=== PATIENT | male | born 1960 | race Caucasian/White ===

== ENCOUNTER → 2018-10-30 07:33 | Outpatient (CLI) | payer OTHER, SELFPAY ==
[2018-10-30 10:16] LABS: ALB/GLOB Ratio 0.9 RATIO (0.9-2.4); AST(SGOT) 23 U/L (15-37); Alanine Aminotransfer ALT/SGPT 54 U/L (16-61); Albumin, Serum 3.7 g/dL (3.2-5.0); Alkaline Phosphatase 85 U/L (45-117); Anion Gap 9 (5-15); BUN 20 mg/dL (7-18); BUN/Creat Ratio 20.4 RATIO (10-20); Calcium,Total 9.4 mg/dL (8.5-10.1); Chloride 106 mmol/L (98-107); Cholesterol 229 mg/dL (200); Creatinine, Serum 0.98 mg/dL (0.70-1.30); EST Glomerular Filtration Rate 84 mL/min (>60); Est Glom Filt Rate - Afr Amer 101 mL/min (>60); Free T3 2.4 pg/mL (2.18-3.98); Globulin 4.1 g/dL (2.2-4.2); Glucose 92 mg/dL (74-106); High Density Lipoprotein 41 mg/dL; Protein, Total 7.8 g/dL (6.4-8.2); Sodium Level 140 mmol/L (136-145); T4 Free Direct 1.21 ng/dL (0.76-1.46); T4 Total, Thyroxin 11.1 ug/dL (4.5-12.1); Thyroid Stim Hormone (TSH) 3.52 uIU/mL (0.358-3.74); Triglycerides 257 mg/dL; Very Low Density Lipoprotein 51 mg/dL (5-40)
[2018-10-30 11:53] LABS: Vitamin B12 433 pg/mL (211-911); Vitamin D,25 Hydroxy 27.2 ng/mL (29.95-100.01)
== END ==
PROVIDERS: Family Provider Family Medicine; PCP Family Medicine; Referring Provider Family Medicine; Visit Provider Family Medicine
DX: R53.83 Other fatigue (principal); E66.9 Obesity, unspecified; E78.5 Hyperlipidemia, unspecified; E03.9 Hypothyroidism, unspecified
CPT/HCPCS: 36415; 80053; 80061; 82306; 82607; 84403; 84436; 84439; 84443; 84481

== ENCOUNTER → 2019-06-29 16:20 | Outpatient (CLI) | payer OTHER, SELFPAY ==
[2019-06-29 18:49] LABS: Thyroid Stim Hormone (TSH) 1.33 uIU/mL (0.358-3.74)
[2019-06-30 08:59] LABS: Vitamin D,25 Hydroxy 36.8 ng/mL (29.95-100.01)
== END ==
PROVIDERS: PCP Family Medicine; Visit Provider Family Medicine
DX: E03.9 Hypothyroidism, unspecified (principal); E55.9 Vitamin D deficiency, unspecified
CPT/HCPCS: 36415; 82306; 84439; 84443

== ENCOUNTER → 2020-01-11 07:34 | Outpatient (CLI) | payer OTHER, SELFPAY ==
[2020-01-11 08:41] LABS: ALB/GLOB Ratio 0.9 RATIO (0.9-2.4); AST(SGOT) 25 U/L (15-37); Alanine Aminotransfer ALT/SGPT 45 U/L (16-61); Albumin, Serum 3.6 g/dL (3.2-5.0); Alkaline Phosphatase 108 U/L (45-117); Anion Gap 5 (5-15); BUN 15 mg/dL (7-18); BUN/Creat Ratio 14.4 RATIO (10-20); Calcium,Total 9.5 mg/dL (8.5-10.1); Chloride 108 mmol/L (98-107); Cholesterol 191 mg/dL (200); Creatinine, Serum 1.04 mg/dL (0.70-1.30); EST Glomerular Filtration Rate 78 mL/min (>60); Est Glom Filt Rate - Afr Amer 94 mL/min (>60); Globulin 4.2 g/dL (2.2-4.2); Glucose 115 mg/dL (74-106); High Density Lipoprotein 33 mg/dL; PSA,Total - Annual Screen 0.72 ng/mL (0.00-4.00); Potassium 4.5 mmol/L (3.5-5.1); Protein, Total 7.8 g/dL (6.4-8.2); Sodium Level 139 mmol/L (136-145); Thyroid Stim Hormone (TSH) 0.72 uIU/mL (0.358-3.74); Triglycerides 273 mg/dL; Very Low Density Lipoprotein 55 mg/dL (5-40)
== END ==
PROVIDERS: PCP Family Medicine; Referring Provider Family Medicine; Visit Provider Family Medicine
DX: R53.83 Other fatigue (principal)
CPT/HCPCS: 36415; 80053; 80061; 84153; 84443; G0103

== ENCOUNTER → 2021-01-03 07:00 | Outpatient (CLI) | payer OTHER, SELFPAY ==
[2021-01-03 11:05] LABS: ALB/GLOB Ratio 0.9 RATIO (0.9-2.4); AST(SGOT) 27 U/L (15-37); Alanine Aminotransfer ALT/SGPT 62 U/L (16-61); Albumin, Serum 3.8 g/dL (3.2-5.0); Alkaline Phosphatase 72 U/L (45-117); Anion Gap 7 (5-15); BUN 17 mg/dL (7-18); BUN/Creat Ratio 18.2 RATIO (10-20); Calcium,Total 9.6 mg/dL (8.5-10.1); Chloride 105 mmol/L (98-107); Cholesterol 225 mg/dL (200); Creatinine, Serum 0.94 mg/dL (0.70-1.30); EST Glomerular Filtration Rate 88 mL/min (>60); Est Glom Filt Rate - Afr Amer 106 mL/min (>60); Globulin 4.1 g/dL (2.2-4.2); Glucose 111 mg/dL (74-106); High Density Lipoprotein 41 mg/dL; PSA,Total - Annual Screen 0.65 ng/mL (0.00-4.00); Protein, Total 7.9 g/dL (6.4-8.2); Sodium Level 138 mmol/L (136-145); Thyroid Stim Hormone (TSH) 3.06 uIU/mL (0.358-3.74); Triglycerides 200 mg/dL; Very Low Density Lipoprotein 40 mg/dL (5-40)
== END ==
PROVIDERS: PCP Family Medicine; Referring Provider Family Medicine; Visit Provider Family Medicine
DX: E78.5 Hyperlipidemia, unspecified (principal); E03.9 Hypothyroidism, unspecified; Z12.5 Encounter for screening for malignant neoplasm of prostate
CPT/HCPCS: 36415; 80053; 80061; 84153; 84443; G0103

== ENCOUNTER 2021-04-20 08:40 | Emergency (ER) | payer OTHER, SELFPAY ==
[2021-04-20 08:41] VITALS: BP 128/95; PULSE 70; RESP 14; TEMP 36.6; O2SAT 98; BMI 39.9
--- NOTE | 2021-04-20 08:56 | ED.VIS.LOWEX ---
HPI History of Present Illness HPI Narrative: Patient presents with left ankle injury that occurred 1 week ago. Patient states he stepped on the edge of a sidewalk and inverted his left ankle. Patient states he felt a pop. Patient states he has been able to ambulate on it for the past week. Patient states that by the end of the day the swelling is getting worse and he has difficulty keeping his shoe on. Patient states his pain is a throbbing. Patient states it is worse when he pivots. Patient states Motrin has been helping with the pain. Patient denies any paresthesias or weakness. Chief Complaint: Lower Extremity Injury Informant: patient Occured/Mechanism Comment: Inversion injury Onset/Context/Timing Onset: Weeks (1) Context: Sudden Onset Timing: Continuous Quality of Pain: Throbbing Worsened by: Pivoting Relieved by: Motrin Associated Symptoms Associated Symptoms: Negative for Parasthesia, Weakness and Loss of Funtion [facility] Medical History (Updated 04/20/21 @ 10:[address] Dave Gaston DO) Gout Hypothyroidism Home Medications allopurinol 300 mg PO DAILY 04/20/21 [History Last Taken Unknown] levothyroxine 200 mcg PO DAILY 04/20/21 [History Last Taken Unknown] Allergy/AdvReac Type Severity Reaction Status Date / Time No Known Allergies Allergy Verified 04/20/21 08:41 Surgical History (Updated 04/20/21 @ 09:06 by Bridgette Young) History of cholecystectomy Hx of cholecystectomy Social History Smoking Status: Light Smoker (<10/day) ROS ROS ED Constitutional Constitutional ED: Denies chills or fever(s) Eyes Eyes: Denies blurry vision or change in vision ENT ENT ED: Denies rhinorrhea or sore throat Cardiovascular Cardiovascular: Denies chest pain or palpitations Respiratory/Chest Respiratory/Chest: Denies cough or dyspnea Gastrointestinal Gastrointestinal: Denies nausea or vomiting Genitourinary Genitourinary ED: Denies dysuria or hematuria Musculoskeletal Musculoskeletal: Denies back pain or neck pain Integumentary Denies abscess or rash Neurologic Neurologic: Denies headache(s) or weakness Allergic/Immunologic Allergic/Immunologic ED: Denies mouth swelling or urticaria EXAM Physical Exam Const Vital Signs: 04/20/21 08:41 Temperature 98 F Temperature Source Temporal Pulse Rate 70 Respiratory Rate 14 Blood Pressure 128/95 H Blood Pressure Mean 106 Pulse Ox 98 Oxygen Delivery Method Room Air Positive well nourished, well developed and obese General Appearance ED: well developed Nutritional Appearance: obese HEENT Reports moist mucous membranes Neck full ROM Extremity Extremity Narrative: There is tenderness over the fifth metatarsal. There is no edema or ecchymosis. There is no bony crepitance or step-off. There is no obvious deformity noted. There is no tenderness over the medial or lateral malleoli. There is a strong pedal pulse noted. Sensation was intact to light touch in all digits. Capillary refill was less than 2 seconds in all digits. General Extremety ED: Yes edema General Extremity: edema Neuro oriented x3, CN's II-XII intact bilaterally, moves all extremities and no sensory deficits noted Sensorium / Orientation: alert Motor Exam: strength 5/5 throughout Psych mental status grossly normal MDM MDM MDM Narrative Medical decision making narrative: X-rays of the left foot were obtained. There are 3 views. On my interpretation, there is a fracture of the base of the fifth metatarsal. There are some mild soft tissue swelling. There is no displacement. Radiologist also interpreted the x-ray and agrees. Patient was given a boot orthosis. Patient was instructed to ice and elevate the left foot. Patient states his Motrin has been helping with his pain and he will continue with this. Patient was given a referral for orthopedics. Patient was instructed to follow-up in 5 to 7 days. Patient understood and was agreeable with the plan. All questions were answered. Radiography Diagnostic Testing: Clinical Impression(s) from Imaging Studies Foot X-Ray 04/20/21 09:20 IMPRESSION: There is a nondisplaced transverse fracture at the base of the fifth metatarsal with overlying soft tissue swelling. Degenerative changes of the first metatarsophalangeal joint. Electronically Signed: Avni Vincent MD at 9:55 EST , Service support , Discharge Plan Triage Chief Complaint: Lower Extremity Injury ED Provider: Dave Gasotn Dx/Rx/DC Orders Clinical Impression: Closed nondisplaced fracture of fifth left metatarsal bone Instructions: ED Fracture, Foot Prescriptions: No Action allopurinol 300 mg Tablet 300 mg PO DAILY RF: 0 levothyroxine 200 mcg Tablet 200 mcg PO DAILY RF: 0 Primary Care Provider: Jaswant Cyr Referrals: Jaswant Cyr MD [Primary Care Provider] - 5-7 Days Zenon Clinton DO [STAFF PHYSICIAN] - 5-7 Days Disposition Disposition: Home, Self Care
--- NOTE | 2021-04-20 09:20 | RAD_ITS ---
STUDY: X-RAY - LEFT FOOT CLINICAL: Male, 60 years old. Injury/Pain TECHNIQUE: 3 view(s) of the foot. COMPARISON: None. FINDINGS: There is an enthesophyte involving the posterior superior calcaneus at the site of insertion of the Achilles tendon. Normal visualized subtalar, talonavicular, calcaneocuboid, tarsal and tarsometatarsal articulations. Nondisplaced transverse fracture at the base of the fifth metatarsal. There is degenerative arthrosis of the metatarsophalangeal joint of the hallux with a hallux valgus deformity. Normal tibial and fibular sesamoid bones. Normal interphalangeal joint of the great toe. Normal phalanges of the great toe. Normal second through fifth metatarsophalangeal joints. Normal interphalangeal joints and phalanges of the lesser toes. Soft tissue swelling. RAD/Foot min 3 Views IMPRESSION: There is a nondisplaced transverse fracture at the base of the fifth metatarsal with overlying soft tissue swelling. Degenerative changes of the first metatarsophalangeal joint. Electronically Signed: Avni Vincent MD at 9:55 EST , Service support ,
== END 2021-04-20 11:21 | disposition home or self-care (01) ==
PROVIDERS: Emergency Provider Emergency Medicine; PCP Family Medicine
DX: S92.352A Displaced fracture of fifth metatarsal bone, left foot, initial encounter for closed fracture (principal); X50.1XXA Overexertion from prolonged static or awkward postures, initial encounter; Y92.480 Sidewalk as the place of occurrence of the external cause; Y99.9 Unspecified external cause status; E66.9 Obesity, unspecified; F17.210 Nicotine dependence, cigarettes, uncomplicated; E03.9 Hypothyroidism, unspecified; M10.9 Gout, unspecified
CPT/HCPCS: 73630; 99285

== ENCOUNTER 2021-05-29 10:38 | Outpatient (CLI) | payer OTHER, SELFPAY ==
[2021-05-29 12:20] LABS: Absolute Lymphocyte Count 1.71 X10^3/uL (0.83-4.51); Absolute Neutrophil Count 4.4 X10^3/uL (2.0-7.7); Basophil# 0.06 X10^3/uL; Basophil% 0.9 % (0-1); Eosinophil# 0.12 X10^3/uL; Eosinophils% 1.8 % (0-5); Hemoglobin 15.5 g/dL (13.0-16.5); Lymphocyte # 1.71 X10^3/ul (0.83-4.51); Lymphocyte % 25.1 % (19-41); Mean Corpuscular Hgb 28.5 pg (27.0-32.0); Mean Corpuscular Volume 86.4 fL (80-94); Monocyte# 0.51 X10^3/uL; Monocyte% 7.5 % (0-10); NRBC Flagged by Analyzer 0 % (0-5); Neutrophil % 64.4 % (47-70); Platelet Count 188 K/mm3 (150-450); RBC Distribution Width CV 13.8 % (11.6-14.6); RBC Distribution Width SD 42.9 fl (35.1-43.9); Red Blood Count 5.44 M/mm3 (4.6-6.2); White Blood Count 6.8 K/mm3 (4.4-11.0)
[2021-05-29 12:46] LABS: ALB/GLOB Ratio 0.8 RATIO (0.9-2.4); AST(SGOT) 25 U/L (15-37); Alanine Aminotransfer ALT/SGPT 59 U/L (16-61); Albumin, Serum 3.7 g/dL (3.2-5.0); Alkaline Phosphatase 68 U/L (45-117); Anion Gap 10 (5-15); BUN 22 mg/dL (7-18); BUN/Creat Ratio 23.5 RATIO (10-20); Chloride 101 mmol/L (98-107); Creatinine, Serum 0.94 mg/dL (0.70-1.30); EST Glomerular Filtration Rate 87 mL/min (>60); Est Glom Filt Rate - Afr Amer 106 mL/min (>60); Globulin 4.4 g/dL (2.2-4.2); Glucose 99 mg/dL (74-106); Potassium 4.2 mmol/L (3.5-5.1); Protein, Total 8.1 g/dL (6.4-8.2); Sodium Level 136 mmol/L (136-145)
== END 2021-05-29 23:59 | disposition short-term general hospital (02) ==
LOC: MFPLAB 10:39
PROVIDERS: PCP Family Medicine; Referring Provider Family Medicine; Visit Provider Family Medicine
DX: Z01.812 Encounter for preprocedural laboratory examination (principal)
CPT/HCPCS: 36415; 80053; 85025

== ENCOUNTER 2021-06-01 11:54 | Day surgery (SDC) | payer OTHER, SELFPAY ==
[2021-05-31 10:43] LABS: Thyroid Stim Hormone (TSH) 1.77 uIU/mL (0.358-3.74)
[2021-06-01] VITALS (9 sets, daily range): BP systolic 121–153; BP diastolic 76–96; PULSE 64–80; RESP 16–17; TEMP 35.5–36; O2SAT 93–99; BMI 40.0
[2021-06-01] MEDS: Lactated Ringers 1,000 ML 15 ML IV ×2 (12:43→16:00)
--- NOTE | 2021-06-01 13:06 | PCM.DC ---
Discharge Instructions Diet Discharge Diet: No restrictions Activity Discharge Activity: May Shower (Use a cast bag around the Left foot/Leg. May place knee on a shower stool to comply with non-weight bearing status) and Use Crutches Weight Bearing Status: No weight bearing (Non-weightbearing to the Left foot) Keep extremity elevated above heart level: Left Leg Dressing / Incision Call your doctor if you observe: Fever of 101 or Higher, Numbness or Tingling, Shortness of breath, Chest pain and Uncontrolled pain Change Dressing in: do not change dressing Remove Dressing in: do not remove dressing Cleanse incision/area with: Do not get Incision Wet Follow Up Care Please Follow Up With: Rosales Tristan DPM When: 1 week. [phone] Test Results: Test results from this visit will be discussed in further detail at your follow-up appointment, if applicable. Discharge Plan Admission Primary Reason for Your Visit: Open Reduction Internal Fixation 5th metatarsal Left foot Attending Provider: Liana Hernandez Primary Care Provider: Jaswant Cyr Discharge Orders/Prescriptions Prescriptions: New hydrocodone-acetaminophen 5-300 mg tablet 1 tab PO Q6H 7 Days Qty: 28 RF: 0 No Action allopurinol 300 mg Tablet 300 mg PO DAILY RF: 0 levothyroxine 200 mcg Tablet 200 mcg PO DAILY RF: 0 multivitamin Tablet 1 tab PO DAILY RF: 0 wheat germ oil 6 minim Capsule 45 mg PO DAILY RF: 0 ascorbic acid (vitamin C) [Vitamin C] 500 mg Tablet 500 mg PO DAILY RF: 0 Metamucil 3.4 gram/5.4 gram Powder 1 tbsp PO DAILY RF: 0 Referrals / Follow Up: Jaswant Cyr MD [Primary Care Provider] - Disposition Disposition (needs filled in before D/C Order can be placed): Home, Self Care
--- NOTE | 2021-06-01 13:45 | RAD_ITS ---
STUDY: X-RAY - LEFT FOOT CLINICAL: Male, 60 years old. ORIF fifth metatarsal. TECHNIQUE: 11 intraoperative view(s) of the foot. COMPARISON: Left foot, 04/20/2021. FINDINGS: The initial image demonstrates a surgical probe inserted into the transverse fracture of the base of the fifth metatarsal. Subsequent images demonstrate closure of the fracture with surgical device with placement of a screw longitudinally through the base of the fifth metatarsal. This is then removed and there is evidence of a plate and screws along the proximal fifth metatarsal with multiple transfixing screws. Please refer to the operative report for further details. RAD/Foot 2 Views IMPRESSION: Internal fixation of a right metatarsal fracture in the OR. Electronically Signed: Domenic Nowak DO at 18:27 EST Tel [phone], Service support ,
[2021-06-01] MEDS: Bupivacaine Mpf 0.5% 30 ML VIAL (16:01)
[2021-06-01] MEDS: Lidocaine 1% (30 ml sdv) 30 ML Vial (16:01)
--- NOTE | 2021-06-01 16:55 | OP.PCM_ITS ---
Problems Associated Problem List Diagnoses (1) Displaced fracture of fifth metatarsal bone, left foot, initial encounter for closed fracture: Report of Operation Date of Procedure: 06/01/21 Pre-Operative Diagnosis: Displaced Fifth metatarsal fracture Left foot Post-Operative Diagnosis: Displaced fifth metatarsal fracture Left foot Surgery/Procedure Performed:: Open Reduction Internal Fixation fifth metatarsal Left foot Description of Surgical Findings:: See operative note for findings Surgeon: Rosales Tristan stage technician: Liana Hernandez Type of Anesthesia: General and Local (Left Ankle Block 20cc 1:1 mixture of 1% Xylocaine plain and 0.5% Bupivicaine plain) Specimen's removed: None Drains: None Estimated Blood Loss (mL): <10mL Description of Procedure: Indication: Patient is a 60 year old male who has history of hypothyroidism and obstructive sleep apnea. He presented to the office with a fracture of the fifth metatarsal of the left foot. He relates that he stepped down from the corner of his walkway unloading firewood and turned his left ankle with audible 'pop' heard at the end of March of 2021. He relates that he thought he sprained his ankle and unloaded the remainder of his firewood. He presented to the [facility] ED a week later due to continued pain in his left foot. Radiographs were taken demonstrating a non-displaced fracture of the fifth metatarsal base, he was dispensed a CAM walker and referred to podiatry. He was seen in office on 04-27-21 where examination was performed and treatment options were discussed. Patient elected for conservative treatment of his non- displaced 5th metatarsal fracture of the left foot. He was instructed to remain in his CAM walker at all times of partial protected weight bearing. He returned to the office for follow up where repeat radiographs were performed demonstrating fracture gapping on the plantar aspect of the fifth metatarsal. Patient and his relate that he was worn the CAM walker when ambulating outside of the house but not when getting up from bed at night to the bathroom. I discussed with him that due to the fracture gapping at the plantar aspect of the fifth metatarsal bone, healing of the site conservatively was no longer an option and surgical intervention was warranted. Patient was sent to PCP for surgical clearance. Medical clearance was obtained. I discussed the procedure in detail with the patient and his , all questions were answered to their satisfaction. All risks, complications and benefits were discussed. No promises or guarantees were made. Patient and voiced understanding of this. Surgical consent was obtained and signed freely. Patient was scheduled for open reduction internal fixation of the fifth metatarsal bone of the left foot at [facility] on 06-01-21. Procedure in detail: Under mild sedation the patient was brought into the operating room and placed on the table in the supine position and secured to the table with a belt. Following IV sedation and induction of general anesthesia a pneumatic thigh tourniquet was placed about the patients left thigh. A surgical bump was placed under the left hip and the foot elevated with blankets. A local anesthetic block was performed about the left ankle consisting of 20mL 1:1 mixture of 1% Xylocaine plain and 0.5% Bupivacaine plain. The foot was then scrubbed, prepped, and draped in the usual aseptic manner. An Esmarch bandage was then used to exsanguinate the left foot and the pneumatic thigh tourniquet was inflated to 350mmHg. At this time attention was directed to the lateral aspect of the left foot where fluoroscopy was utilized to guide incision placement to adequately access the fracture site. A 4cm dorsolateral linear incision was utilized proximal to distal overlying the fifth metatarsal base. This incision was deepened through the subcutaneous tissues via sharp and blunt dissection. Care was taken to identify the sural nerve and small saphenous vein, and they were protected throughout the duration of this case. The periosteal tissue were transected and reflected from the fracture site. The fracture site was accessed with an osteotome and freshened with a curette. The fracture site was reduced with a pointed reduction clamp and held in position. Reduction was visualized under multiple fluoroscopic views and deem to be adequate with opposing ends well aligned. Following AO technique a 4.5mm partially threaded cortical lag screw was placed through the medullary canal of the fifth metatarsal. Placement was viewed in multiple fluoroscopic views and deemed excellent reduction of the fracture site. Upon removal of the reduction clamp the fracture site had some gapping and noted to lack proper stability. The 4.5mm partially threaded cortical lag screw was removed and the reduction clamp applied with reduction confirmed in multiple fluoroscopic views. At this time a five hole hook plate was applied to the lateral aspect of the fifth metatarsal. Following AO principles a 2.4mm cortical screw (12mm) was placed at the most distal aspect of the oblong hole of the hook plate. A 2.4mm cortical screw (32mm) was placed through the distal lateral aspect of the hook plate to obtain compression across the fracture site. Following AO technique, two 2.4mm Locking compression screws, 18mm and 12mm, were placed distal to the fracture site. Fixation was observed under fluoroscopy in multiple planes and deemed excellent. The construct was deemed stable with the entire 5th metatarsal moving as a single unit. The site was then flushed with normal sterile saline. The fracture site was packed with cancellous bone chips and 1cc of Augment was injected into the fracture site to optimize bone healing. The deep tissues were closed with 4-O Vicryl. At this time the pneumatic thigh tourniquet was deflated and a prompt hyperemic response was noted to the digits of the left foot. Any bleeders were cauterized as necessary. The subcutaneous tissues were closed with 4-O Monocryl, and the skin was reapproximated with 4-O Prolene. A Local anesthetic block was performed about the surgical site consisting of 10mL of 0.5% Bupivacaine plain. The surgical site was dressed with Betadine soaked Adaptic, 4x4 gauze, Kerlix, webril, a 4 inch DOMINICK wrap and 6 inch DOMINICK wrap. A posterior split was applied to the left lower extremity and dressed with 4 inch DOMINICK wrap and 6 inch DOMINICK wrap. The posterior splint was well padded with compression applied to control post-operative swelling. The patient tolerated the procedure and anesthesia well and was transported to PACU with vital signs stable and vascular status intact to the left foot. He will follow up in office in 1 week. Patient and have been instructed to keep dressings clean, dry, and intact. They have also been instructed on strict non-weight bearing status to the left foot with assistance of crutches. He has been instructed to elevate the left lower extremity and may apply ice behind the knee to control post-operative swelling and pain. Patient has prescription for pain medication and has been instructed to take his first dose this evening. Discharge orders given to family with instructions to call the office for any foot or ankle problems. Grafts/Implants Used: Arthex 5 hole 5th MT plate; 2.4mm screws x4; 1cc Augment; Cancellous chips Complications None Admit VTE Documentation VTE Present on Admission: No VTE Mechan Device Prophylaxis: SCD's VTE Pharm Prophylaxis ordered?: No Reason prophylaxis not ordered:: Treatment Not Indicated
[2021-06-01] MEDS: HYDROcodone Bitartrate/Apap 5/325 Tablet PO (18:05)
== END 2021-06-01 23:59 | disposition home or self-care (01) ==
LOC: SDC 11:55 → AC 11:57
PROVIDERS: Anesthesiology; Student in an Organized Health Care Education/Training Program; PCP Family Medicine; Referring Provider Podiatrist; Visit Provider Podiatrist
PROC: (CPT 28485; principal; 2021-06-01 13:10)
DX: S92.352A Displaced fracture of fifth metatarsal bone, left foot, initial encounter for closed fracture (principal); Z68.41 Body mass index [BMI] 40.0-44.9, adult; X50.1XXA Overexertion from prolonged static or awkward postures, initial encounter; Y93.01 Activity, walking, marching and hiking; Y99.8 Other external cause status; E03.9 Hypothyroidism, unspecified; E66.9 Obesity, unspecified; M10.9 Gout, unspecified; G47.33 Obstructive sleep apnea (adult) (pediatric); Z79.899 Other long term (current) drug therapy
CPT/HCPCS: 28485; 01480; 73620; 76000; 84443; 86850; 86900; 86901; C1713; J7120; J2405

== ENCOUNTER → 2022-03-05 | Outpatient (CLI) | payer OTHER, SELFPAY ==
[2022-03-05 10:28] LABS: Vitamin D,25 Hydroxy 31.5 ng/mL
[2022-03-05 10:41] LABS: ALB/GLOB Ratio 0.8 RATIO (0.9-2.4); AST(SGOT) 22 U/L (15-37); Alanine Aminotransfer ALT/SGPT 47 U/L (16-61); Albumin, Serum 3.6 g/dL (3.2-5.0); Alkaline Phosphatase 94 U/L (45-117); Anion Gap 3 (5-15); BUN 18 mg/dL (7-18); BUN/Creat Ratio 15.9 RATIO (10-20); Chloride 108 mmol/L (98-107); Cholesterol 222 mg/dL (200); Creatinine, Serum 1.13 mg/dL (0.70-1.30); EST Glomerular Filtration Rate 70 mL/min (>60); Est Glom Filt Rate - Afr Amer 85 mL/min (>60); Globulin 4.3 g/dL (2.2-4.2); Glucose 102 mg/dL (74-106); High Density Lipoprotein 41 mg/dL; Potassium 4.5 mmol/L (3.5-5.1); Protein, Total 7.9 g/dL (6.4-8.2); Sodium Level 139 mmol/L (136-145); T4 Free Direct 1.12 ng/dL (0.76-1.46); Thyroid Stim Hormone (TSH) 3.54 uIU/mL (0.358-3.74); Triglycerides 201 mg/dL; Very Low Density Lipoprotein 40 mg/dL (5-40)
== END | disposition home or self-care (01) ==
LOC: MFPLAB 08:12
PROVIDERS: PCP Family Medicine; Referring Provider Family Medicine; Visit Provider Family Medicine
DX: E78.5 Hyperlipidemia, unspecified (principal); E03.9 Hypothyroidism, unspecified
CPT/HCPCS: 36415; 80053; 80061; 82306; 84153; 84439; 84443

== ENCOUNTER → 2023-03-03 | Outpatient (CLI) | payer OTHER, SELFPAY ==
[2023-03-03 10:41] LABS: ALB/GLOB Ratio 0.9 RATIO (0.9-2.4); AST(SGOT) 22 U/L (15-37); Alanine Aminotransfer ALT/SGPT 45 U/L (16-61); Albumin, Serum 3.6 g/dL (3.2-5.0); Alkaline Phosphatase 79 U/L (45-117); Anion Gap 5 (5-15); BUN 21 mg/dL (7-18); BUN/Creat Ratio 18.3 RATIO (10-20); Calcium,Total 9.7 mg/dL (8.5-10.1); Chloride 108 mmol/L (98-107); Cholesterol 209 mg/dL (200); Creatinine, Serum 1.15 mg/dL (0.70-1.30); EST Glomerular Filtration Rate 68 mL/min (>60); Est Glom Filt Rate - Afr Amer 83 mL/min (>60); Glucose 102 mg/dL (74-106); High Density Lipoprotein 39 mg/dL; PSA,Total- Diagnostic 1.42 ng/mL (0.0-4.0); Potassium 3.7 mmol/L (3.5-5.1); Protein, Total 7.6 g/dL (6.4-8.2); Sodium Level 139 mmol/L (136-145); Triglycerides 291 mg/dL; Very Low Density Lipoprotein 58 mg/dL (5-40)
== END | disposition home or self-care (01) ==
LOC: MTLAB 07:35
PROVIDERS: PCP Family Medicine; Referring Provider Family Medicine; Visit Provider Family Medicine
DX: E03.9 Hypothyroidism, unspecified (principal); E78.5 Hyperlipidemia, unspecified
CPT/HCPCS: 36415; 80053; 80061; 84153; 84439; 84443

== ENCOUNTER 2023-12-04 11:52 | Emergency (ER) | payer OTHER, SELFPAY ==
[2023-12-04 11:52] VITALS: BP 129/96; PULSE 96; RESP 22; TEMP 36.3; O2SAT 95
--- NOTE | 2023-12-04 12:08 | ED.RN ---
SPOUSE ATTEMPTING TO MAKE PT SIT IN W/C, PT DID NOT WANT TO SIT IN THE W/C., SPOUSE FORCIBLY ATTEMPTED TO HAVE PT STAY IN W/C. PT EXPLAINED SEVERAL TIMES THAT HE COULD NOT SIT. WHEN THIS RN ASKED PT TO SHOW WHERE HIS PAIN WAS, PT'S SPOUSE STARTED TO OVER TALKED PT. THE RN ATTEMPTED TO EXPLAINED TO SPOUSE THAT THIS RN WOULD LIKE THE PT TO SHOW/DESCRIBE WHERE IS PAIN WAS LOCATED, SPOUSED ROLLED HER EYES, HUFFED AND SMIRKED AT THIS RN. SPOUSE STATES THE PT IS TO SEE A DRCici IMMEDIATELY D/T HIS PAIN, STATING THAT SHE INSTITUTED A POLICY HERE YEARS AGO REGARDING PT'S BEING SEEN IMMEDIATELY BY THE DRCici FOR PAIN.
--- NOTE | 2023-12-04 12:11 | EX.ED.DYSGE1 ---
HPI History of Present Illness Chief Complaint: Flank Pain Informant: patient and spouse/S.O. Narrative Narrative: 63-year-old male presenting to the emergency room abdomen with a chief complaint of abdominal and flank pain. Patient 1 his states that he had diarrhea last night. The patient developed severe pain in the RLQ radiating to the right flank. He notes nausea, Patient denies any further diarrhea or fevers. He denies any testicular pain. He notes a history of kidney stones hypothyroidism and gout. He has had prior cholecystectomy. He denies anything to eat or drink today. [facility] Medical History Wears glasses Thyroid disease Non-smoker CPAP (continuous positive airway pressure) dependence Sleep apnea Gout Hypothyroidism Home Medications ?Medication ?Instructions ?Recorded ?Last Taken ?Type allopurinol 300 mg tablet 300 mg PO DAILY 04/20/21 Unknown History levothyroxine 200 mcg tablet 200 mcg PO DAILY 04/20/21 06/01/21 History multivitamin 1 tab PO DAILY 05/31/21 Unknown History psyllium husk 3.4 gram/5.4 gram 1 tbsp PO DAILY 06/01/21 Unknown History oral powder (Metamucil) cephalexin 500 mg capsule 500 mg PO Q8H #15 CAPSULES 12/04/23 Unknown Rx lorazepam 0.5 mg tablet 0.5 mg PO TID PRN spasm #10 tabs 12/04/23 Unknown Rx oxycodone-acetaminophen 5 mg-325 1 tab PO Q6H PRN PRN Pain 3 days 12/04/23 Unknown Rx mg tablet #12 TABLETS Allergy/AdvReac Type Severity Reaction Status Date / Time No Known Allergies Allergy Verified 12/04/23 11:52 Surgical History History of cholecystectomy Hx of cholecystectomy Social History Smoking Status: Light Smoker (<10/day) alcohol intake: current alcohol intake frequency: a few times a month ROS ROS ED Constitutional Constitutional ED: Reports sweats; Denies chills, fever(s) or weight loss Eyes Eyes: Denies change in vision or diplopia ENT ENT ED: Denies ear pain, rhinorrhea or sore throat Cardiovascular Cardiovascular: Denies chest pain, orthopnea, palpitations or racing heartbeat Respiratory/Chest Respiratory/Chest: Denies cough, dyspnea or orthopnea Gastrointestinal Gastrointestinal: Reports abdominal pain, diarrhea and nausea; Denies vomiting Genitourinary Genitourinary ED: Denies dysuria, hematuria or urinary frequency Musculoskeletal Musculoskeletal: Reports back pain; Denies arthralgias or myalgias Integumentary Denies abscess or rash Neurologic Neurologic: Denies headache(s) or weakness Psychiatric Psychiatric: Denies anxiety, depression, suicidal ideation or suicidal thoughts Endocrine Endocrinology: Denies polydipsia, polyphagia or polyuria Allergic/Immunologic Allergic/Immunologic ED: Denies mouth swelling, tongue swelling or urticaria EXAM Physical Exam Narrative Exam Narrative: Patient appears very uncomfortable. He is having difficulty sitting still and sitting down in the bed. He prefers to be up against the wall. Const Vital Signs: 12/04/23 11:52 12/04/23 12:52 12/04/23 13:00 Temperature 97.3 F L Temperature Source Temporal Pulse Rate 96 71 78 Respiratory Rate 22 H 18 16 Blood Pressure 129/96 H 132/90 H 128/79 H Blood Pressure Mean 107 104 95 Pulse Ox 95 96 97 Oxygen Delivery Method Room Air Room Air Room Air Positive well nourished and well developed General Appearance ED: well developed HEENT Reports normocephalic, head/scalp atraumatic and moist mucous membranes Eyes PERRL and EOMs intact bilaterally Neck no lymphadenopathy, supple and no JVD Resp normal respiratory effort and clear to auscultation bilaterally Cardio regular rate, regular rhythm and no murmurs GI normal to inspection, nondistended, normoactive bowel sounds and non-tender Auscultation: normoactive bowel sounds Palpation: soft Back/Spine no CVA tenderness and normal ROM Extremity normal to inspection General Extremety ED: Negative for edema General Extremity: Negative for edema Neuro oriented x3 and CN's II-XII intact bilaterally Sensorium / Orientation: alert Motor Exam: strength 5/5 throughout Psych mental status grossly normal Mood & Affect: Negative for depressed or tearful Skin no rashes or lesions noted and no wounds MDM MDM MDM Narrative Medical decision making narrative: Differential diagnosis includes but not limited to ureterolithiasis testicular torsion appendicitis volvulus bowel obstruction UTI Basic blood work shows a normal white count hemoglobin. Platelet count is 186. Creatinine 1.27. Lipase 43 normal liver enzymes. Urinalysis demonstrated 25-50 red cells 10-25 white cells 1+ bacteria negative nitrates. This was sent for culture CT abdomen pelvis demonstrates a distal ureteral stone of 6 mm with associated hydronephrosis earlier. Patient received IV fluids 2 doses of morphine Ativan and Toradol. He also received Zofran. Repeat examination finds him to be feeling significantly improved. I discussed with the patient the above results. He will be placed on Keflex Percocet and some Ativan for spasm which he felt was greatly beneficial for him. Patient to return if worsening or concerns follow-up with urology as needed History & Record Review Discussion w/independent historian: Patient Lab Data Attestation: I reviewed the patient's lab results. Labs: Laboratory Results - last 24 hr 12/04/23 12/04/23 12:15 13:19 WBC 7.6 RBC 5.59 Hgb 16.0 Hct 48.4 MCV 86.6 MCH 28.6 MCHC 33.1 RDW Std Deviation 44.5 H RDW Coeff of Stewart 14.3 Plt Count 186 MPV 9.7 Immature Gran % (Auto) 0.400 Neut % (Auto) 59.7 Lymph % (Auto) 29.5 [place] % (Auto) 7.8 Eos % (Auto) 2.1 Baso % (Auto) 0.5 Absolute Neuts (auto) 4.5 Absolute Lymphs (auto) 2.23 Nucleated RBC % 0 Sodium 140 Potassium 4.1 Chloride 108 H Carbon Dioxide 21.0 Anion Gap 11 BUN 16 Creatinine 1.27 Est GFR (MDRD) Af Amer 74 Est GFR (MDRD) Non-Af 61 BUN/Creatinine Ratio 12.6 Glucose 108 H Calcium 10.6 H Total Bilirubin 0.70 Direct Bilirubin 0.18 AST 26 ALT 43 Alkaline Phosphatase 102 Total Protein 8.8 H Albumin 4.0 Globulin 4.8 H Lipase 43 Urine Color Yellow Urine Clarity Cloudy Urine pH 5.0 Ur Specific [place] 1.020 Urine Protein 30 H Urine Glucose (UA) Normal Urine Ketones 5 H Urine Occult Blood 250 H Urine Nitrite Negative Urine Bilirubin Negative Urine Urobilinogen 1 H Ur Leukocyte Esterase 100 H Urine RBC 25-50 SEEN Urine WBC 10-25 SEEN Ur Squamous Epith Cells 0-5 SEEN Urine Bacteria 1+ Urine Mucus 1+ Radiography Diagnostic Testing: Clinical Impression(s) from Imaging Studies Abdomen/Pelvis CT 12/04/23 12:30 IMPRESSION: 6 mm obstructing stone at the left ureteral vesicle junction with moderate ureteral dilatation, hydronephrosis and perinephric edema. Electronically Signed: Brody Mederos MD at 13:35 EDT , Discharge Plan Triage Chief Complaint: Flank Pain ED Provider: Jhonatan Bush Dx/Rx/DC Orders Clinical Impression: Kidney stone, Abdominal pain Instructions: ED Kidney Stone with Pain Prescriptions: New oxycodone-acetaminophen 5-325 mg tablet 1 tab PO Q6H PRN PRN (Reason: Pain) 3 Days Qty: 12 0RF cephalexin 500 mg capsule 500 mg PO Q8H Qty: 15 0RF lorazepam [lorazepam] 0.5 mg tablet 0.5 mg PO TID PRN (Reason: spasm) Qty: 10 0RF No Action allopurinol 300 mg Tablet 300 mg PO DAILY levothyroxine 200 mcg Tablet 200 mcg PO DAILY multivitamin Tablet 1 tab PO DAILY Metamucil 3.4 gram/5.4 gram Powder 1 tbsp PO DAILY Primary Care Provider: Brian Cyr Referrals: Brian Cyr MD [Primary Care Provider] - Manuel Rodriges MD [Med Staff - Active Staff] - 3-5 Days if not improving Print Language: Danish Disposition Disposition: Home, Self Care
[2023-12-04] MEDS: Ondansetron 4 MG/2 ML Vial IV (12:16)
[2023-12-04] MEDS: Ketorolac 30 MG/ML Syringe IV (12:16)
[2023-12-04] MEDS: Morphine 4 MG/ML Syringe IV (12:17)
[2023-12-04] MEDS: 0.9% Normal Saline (1000mL) 1,000 ML 999 ML IV (12:20)
[2023-12-04 12:26] LABS: Absolute Lymphocyte Count 2.23 X10^3/uL (0.83-4.51); Absolute Neutrophil Count 4.5 X10^3/uL (2.0-7.7); Basophil# 0.04 X10^3/uL; Basophil% 0.5 % (0-1); Eosinophil# 0.16 X10^3/uL; Eosinophils% 2.1 % (0-5); Hematocrit 48.4 % (40-54); Lymphocyte # 2.23 X10^3/ul (0.83-4.51); Lymphocyte % 29.5 % (19-41); Mean Corp Hgb Conc 33.1 g/dL (32-36); Mean Corpuscular Hgb 28.6 pg (27.0-32.0); Mean Corpuscular Volume 86.6 fL (80-94); Mean Platelet Vol. 9.7 fl (6.2-12.0); Monocyte# 0.59 X10^3/uL; Monocyte% 7.8 % (0-10); NRBC Flagged by Analyzer 0 % (0-5); Neutrophil % 59.7 % (47-70); Platelet Count 186 K/mm3 (150-450); RBC Distribution Width CV 14.3 % (11.6-14.6); RBC Distribution Width SD 44.5 fl (35.1-43.9); Red Blood Count 5.59 M/mm3 (4.6-6.2); White Blood Count 7.6 K/mm3 (4.4-11.0)
--- NOTE | 2023-12-04 12:30 | CT_ITS ---
STUDY: CT ABDOMEN AND PELVIS WITHOUT CONTRAST REASON FOR EXAM: Male, 63 years old. right kidney stone RADIATION DOSAGE (If Supplied By Facility): CTDIvol = ( 21.71 ) mGy, DLP = ( 1155.20 ) mGycm TECHNIQUE: Transaxial images were obtained from the dome of the diaphragm to the symphysis pubis without oral contrast, and without intravenous contrast. Sagittal and coronal images were reconstructed. Individualized dose optimization techniques were used for this CT. COMPARISON: 03/06/2009 FINDINGS: The visualized lung bases are unremarkable. The visualized portions of the heart are within normal limits. 2 small cysts in the left lobe of the liver. There is non-visualization of the gallbladder, which may be secondary to either contraction or a prior cholecystectomy. Normal spleen. Normal pancreas. There is a small, circumscribed, smooth, low attenuation left adrenal mass, consistent with an adrenal adenoma. Normal right adrenal gland. Tiny nonobstructing stones in the right kidney. 6 mm obstructing stone at the left ureteral vesicle junction with moderate ureteral dilatation, hydronephrosis, perinephric edema. Normal visualized stomach. Normal small intestine. There are multiple colonic diverticula consistent with diverticulosis. The appendix is visualized and appears normal. Normal abdominal aorta. Normal inferior vena cava. Normal retroperitoneum. Normal urinary bladder. Normal abdominal wall. Normal osseous structures. CT/Abdomen/Pelvis without Cont IMPRESSION: 6 mm obstructing stone at the left ureteral vesicle junction with moderate ureteral dilatation, hydronephrosis and perinephric edema. Electronically Signed: Brody Mederos MD at 13:35 EDT ,
[2023-12-04] MEDS: LORazepam 2 MG/ML Syringe 1 MG IV (12:31)
[2023-12-04 12:44] LABS: AST(SGOT) 26 U/L (15-37); Alanine Aminotransfer ALT/SGPT 43 U/L (16-61); Alkaline Phosphatase 102 U/L (45-117); Anion Gap 11 (5-15); BUN 16 mg/dL (7-18); BUN/Creat Ratio 12.6 RATIO (10-20); Bilirubin, Direct 0.18 mg/dL (0.00-0.30); Calcium,Total 10.6 mg/dL (8.5-10.1); Chloride 108 mmol/L (98-107); Creatinine, Serum 1.27 mg/dL (0.70-1.30); EST Glomerular Filtration Rate 61 mL/min (>60); Est Glom Filt Rate - Afr Amer 74 mL/min (>60); Globulin 4.8 g/dL (2.2-4.2); Glucose 108 mg/dL (74-106); Lipase 43 U/L (13-75); Potassium 4.1 mmol/L (3.5-5.1); Protein, Total 8.8 g/dL (6.4-8.2); Sodium Level 140 mmol/L (136-145)
[2023-12-04 12:52] VITALS: BP 132/90; PULSE 71; RESP 18; O2SAT 96
[2023-12-04 13:00] VITALS: BP 128/79; PULSE 78; RESP 16; O2SAT 97
[2023-12-04 13:23] LABS: Color, Urine Yellow (Yellow); Glucose, Dipstick Normal (Normal); Ketone-Dipstick 5 mg/dl (Negative); Leukocyte Esterase-Dipstick 100 /ul (Negative); Nitrite-Dipstick Negative (Negative); Occult Blood-Urine 250 /ul (Negative); Protein-Dipstick 30 mg/dl (Negative); Urine Bilirubin Dipstick Negative (Negative); Urine Clarity Cloudy (Clear); Urine Urobilinogen 1 mg/dl (Normal)
[2023-12-04 13:28] LABS: Red Blood Cells-Urine 25-50 SEEN /hpf (0-5); Squamous Epithelial Cells - UA 0-5 SEEN /hpf (0-5); White Blood Cells 10-25 SEEN /hpf (0-5)
[2023-12-04 13:29] LABS: Bacteria 1+ /hpf (None Seen); Mucous, Urine 1+ /hpf (<or=2+)
[2023-12-04 14:31] VITALS: BP 148/100; PULSE 55; RESP 16; TEMP 36; O2SAT 98
== END 2023-12-04 14:32 | disposition home or self-care (01) ==
PROVIDERS: Emergency Provider Emergency Medicine; PCP Family Medicine; Visit Provider Emergency Medicine
DX: N13.2 Hydronephrosis with renal and ureteral calculous obstruction (principal); F17.200 Nicotine dependence, unspecified, uncomplicated; Z90.49 Acquired absence of other specified parts of digestive tract; E03.9 Hypothyroidism, unspecified; Z99.89 Dependence on other enabling machines and devices; G47.30 Sleep apnea, unspecified
CPT/HCPCS: 74176; 80048; 80076; 81001; 83690; 85025; 87086; 87088; 96361; 96374; 96375; 99283; J7030; A4216; J2405

== ENCOUNTER → 2024-04-01 | Outpatient (CLI) | payer OTHER, SELFPAY ==
[2024-04-01 09:08] LABS: ALB/GLOB Ratio 0.9 RATIO (0.9-2.4); AST(SGOT) 20 U/L (15-37); Alanine Aminotransfer ALT/SGPT 37 U/L (16-61); Albumin, Serum 3.7 g/dL (3.2-5.0); Alkaline Phosphatase 89 U/L (45-117); Anion Gap 6 (5-15); BUN 21 mg/dL (7-18); BUN/Creat Ratio 19.3 RATIO (10-20); Calcium,Total 10.1 mg/dL (8.5-10.1); Chloride 105 mmol/L (98-107); Creatinine, Serum 1.09 mg/dL (0.70-1.30); EST Glomerular Filtration Rate 73 mL/min (>60); Est Glom Filt Rate - Afr Amer 88 mL/min (>60); Globulin 4.1 g/dL (2.2-4.2); Glucose 104 mg/dL (74-106); Potassium 4.1 mmol/L (3.5-5.1); Protein, Total 7.8 g/dL (6.4-8.2); Sodium Level 136 mmol/L (136-145); T4 Free Direct 1.06 ng/dL (0.76-1.46)
== END | disposition home or self-care (01) ==
PROVIDERS: PCP Family Medicine; Referring Provider Family Medicine; Visit Provider Family Medicine
DX: E03.9 Hypothyroidism, unspecified (principal)
CPT/HCPCS: 36415; 80053; 84439; 84443

== ENCOUNTER 2024-08-09 07:36 | Day surgery (SDC) | payer OTHER, SELFPAY ==
[2024-08-09] VITALS (16 sets, daily range): BP systolic 110–160; BP diastolic 66–111; PULSE 60–94; RESP 16–38; TEMP 36.1–36.5; O2SAT 93–99; BMI 38.0
--- NOTE | 2024-08-09 | CALC_PTH ---
PATIENT: MAE BIRCH LOC: [facility] [place] U#:[id number] AGE/SX: 63/M ROOM: RE08/09/[address]: Dr. Manuel Rodriges MD : 1960 BED: DIS: 08/09/2024 SPEC #: [id number] RECD: 08/09/24 13:26 STATUS: ANA GONZALEZ #: [id number] TANIA: 08/09/24 00:[address]: Manuel Rodriges DEPT: SURGICAL PATHOLOGY RECD BY: Trevin Milton ENTERED: 08/09/24 13:28 SP TYPE: Calculi OTHR DR: Dr. Brian Cyr MD Tissues: A - CALCULI Procedures: Surgery Specimen Level I HEADER OPERATION: Laser lithotripsy, stone basket extraction PRE-OP DIAGNOSIS: Calculus in urethra TISSUE SUBMITTED: A- Kidney stone for analysis GROSS DIAGNOSIS Urethral calculus, removed: * Calculus confirmed (gross examination only). * Chemical analysis is PENDING and will be reported separately. GROSS DESCRIPTION Received fresh labeled, Mae Birch, and designated kidney stone, is a samaniego-brown, elongated, ragged calculus measuring 1.2 x 0.6 x 0.5 cm. The calculus is for gross examination only and entirely submitted for chemical analysis. 08/09/2024 CPT:76898
--- NOTE | 2024-08-09 07:53 | CT_ITS ---
EXAM: CT Abdomen and Pelvis Without Intravenous Contrast CLINICAL INDICATION: KIDNEY STONE TECHNIQUE: Axial computed tomography images of the abdomen and pelvis without intravenous contrast. This CT exam was performed using one or more of the following dose reduction techniques: automated exposure control, adjustment of the mA and/or kV according to patient size, and/or use of iterative reconstruction technique. COMPARISON: No relevant prior studies available. FINDINGS: LUNG BASES: Unremarkable. No mass. No consolidation. MEDIASTINUM: Small esophageal hiatal hernia. ABDOMEN: LIVER: Hepatic cysts. Fatty infiltration of the liver. GALLBLADDER AND BILE DUCTS: Unremarkable. No calcified stones. No ductal dilation. PANCREAS: Unremarkable. No ductal dilation. SPLEEN: Unremarkable. No splenomegaly. ADRENALS: 3.1 cm left adrenal adenoma. KIDNEYS AND URETERS: Unremarkable. No stones within either kidney. No hydronephrosis. STOMACH AND BOWEL: Colonic diverticulosis without acute diverticulitis. No obstruction. PELVIS: APPENDIX: No findings to suggest acute appendicitis. BLADDER: Unremarkable. No stones. REPRODUCTIVE: Unremarkable as visualized. ABDOMEN and PELVIS: INTRAPERITONEAL SPACE: Unremarkable. No free air. No significant fluid collection. BONES/JOINTS: No acute fracture. No dislocation. SOFT TISSUES: Bilateral inguinal hernias. VASCULATURE: Scattered calcified atherosclerotic disease of aorta. No abdominal aortic aneurysm. LYMPH NODES: Unremarkable. No enlarged lymph nodes. CT/Abdomen/Pelvis without Cont IMPRESSION: 1. Left adrenal adenoma. 2. Small esophageal hiatal hernia. 3. Bilateral inguinal hernias. 4. No obstructive uropathy. 5. Colonic diverticulosis without acute diverticulitis. Reading Location: [facility]
--- NOTE | 2024-08-09 07:54 | EX.ED.DYSGE1 ---
HPI History of Present Illness Chief Complaint: Flank Pain Informant: patient and spouse/S.O. Narrative Narrative: 63-year-old male presenting to the emergency room with flank abdominal pain and hematuria. Patient notes a history of kidney stones as well as gout. He was seen last year for ureterolithiasis. He states that last Friday he began to have pain in the left flank that came and went. He went saw his primary care doctor was put on Flomax as well as Augmentin for ear infection. He states that last night and this morning he had severe pain in the suprapubic lower abdomen region as well as hematuria. He states that he noted blood in his underwear this morning. He states that he has been having to strain to urinate. Patient notes he is having to strain to urinate about every 45 minutes. No reported fever. No change in bowel habits. [facility] Medical History Wears glasses Thyroid disease Non-smoker CPAP (continuous positive airway pressure) dependence Sleep apnea Gout Hypothyroidism Home Medications ?Medication ?Instructions ?Recorded ?Last Taken ?Type allopurinol 300 mg tablet 300 mg PO DAILY 04/20/21 Unknown History levothyroxine 200 mcg tablet 200 mcg PO DAILY 04/20/21 06/01/21 History multivitamin 1 tab PO DAILY 05/31/21 Unknown History amoxicillin 875 mg-potassium 1 tab PO BID 08/09/24 Unknown History clavulanate 125 mg tablet cholecalciferol (vitamin D3) 50 50 mcg PO DAILY supplement 08/09/24 08/09/24 History mcg (2,000 unit) tablet (Thera-D) levothyroxine 25 mcg tablet 25 mcg PO DAILY thyroid 08/09/24 08/09/24 History red yeast rice 300 mg-coQ10 30 1 cap PO DAILY supplement 08/09/24 08/09/24 History [id number] 120 mg-epa-fish capsule (Red [place]) tamsulosin 0.4 mg capsule 0.4 mg PO QHS 08/09/24 Unknown History Allergy/AdvReac Type Severity Reaction Status Date / Time No Known Allergies Allergy Verified 07/18/24 08:09 Surgical History History of cholecystectomy Hx of cholecystectomy Social History Smoking Status: Light Smoker (<10/day) alcohol intake: current alcohol intake frequency: a few times a month ROS ROS ED Constitutional Constitutional ED: Denies chills, fever(s) or weight loss Eyes Eyes: Denies change in vision or diplopia ENT ENT ED: Denies ear pain, rhinorrhea or sore throat Cardiovascular Cardiovascular: Denies chest pain, orthopnea, palpitations or racing heartbeat Respiratory/Chest Respiratory/Chest: Denies cough, dyspnea or orthopnea Gastrointestinal Gastrointestinal: Reports abdominal pain and nausea; Denies constipation, diarrhea or vomiting Genitourinary Genitourinary ED: Reports hematuria; Denies dysuria or urinary frequency Musculoskeletal Musculoskeletal: Reports back pain; Denies arthralgias or myalgias Integumentary Denies abscess or rash Neurologic Neurologic: Denies headache(s) or weakness Psychiatric Psychiatric: Denies anxiety, depression, suicidal ideation or suicidal thoughts Endocrine Endocrinology: Denies polydipsia, polyphagia or polyuria Allergic/Immunologic Allergic/Immunologic ED: Denies mouth swelling, tongue swelling or urticaria EXAM Physical Exam Narrative Exam Narrative: 63-year-old male sitting uncomfortably on the side of the bed. Notes most of his pain is in the suprapubic region. Const Vital Signs: 08/09/24 07:38 08/09/24 07:42 08/09/24 08:37 Temperature 97.7 F L 97.7 F L Temperature Source Oral Oral Pulse Rate 94 94 65 Respiratory Rate 18 18 18 Blood Pressure 160/111 H 160/111 H Blood Pressure Mean 127 127 Pulse Ox 97 97 99 Oxygen Delivery Method Room Air Room Air 08/09/24 09:00 08/09/24 09:10 08/09/24 10:00 Temperature Temperature Source Pulse Rate 69 72 Respiratory Rate 16 38 H 16 Blood Pressure 127/66 H Blood Pressure Mean 86 Pulse Ox 99 98 97 Oxygen Delivery Method Room Air Room Air Room Air Positive well nourished and well developed General Appearance ED: well developed HEENT Reports normocephalic, head/scalp atraumatic and moist mucous membranes Eyes PERRL and EOMs intact bilaterally Neck no lymphadenopathy, supple and no JVD Resp normal respiratory effort and clear to auscultation bilaterally Cardio regular rate, regular rhythm and no murmurs GI normal to inspection, nondistended, normoactive bowel sounds and non-tender Palpation: soft Back/Spine no CVA tenderness and normal ROM Extremity normal to inspection General Extremety ED: Negative for edema General Extremity: Negative for edema Neuro oriented x3 and CN's II-XII intact bilaterally Sensorium / Orientation: alert Motor Exam: strength 5/5 throughout Psych mental status grossly normal Mood & Affect: Negative for depressed or tearful Skin no rashes or lesions noted and no wounds MDM MDM MDM Narrative Medical decision making narrative: Differential diagnosis includes but not limited to ureteral stone urethral stone prostatitis UTI malignancy acute kidney injury White count 7.7 hemoglobin 16.3. Urinalysis 0-5 whites 0-5 reds 0 bacteria negative nitrates. Creatinine is 0.96. Due to technical difficulties in the lab I do not have the full BMP back yet. CT of the abdomen pelvis I do not see an obvious ureteral stone but there appears to be a large stone in his urethra just beneath the prostate. Patient received pain and nausea medication. I spoke with Dr. Rodriges for urology and we reviewed the case. Plan will be to take him to the operating room for management. History & Record Review Discussion w/independent historian: Patient and Family Additional record(s) reviewed:: Prior ED visit and Prior labs Lab Data Attestation: I reviewed the patient's lab results. Labs: Laboratory Results - last 24 hr 08/09/24 08/09/24 07:48 09:31 WBC 7.7 RBC 5.67 Hgb 16.3 Hct 48.1 MCV 84.8 MCH 28.7 MCHC 33.9 RDW Std Deviation 43.2 RDW Coeff of Stewart 14.1 Plt Count 202 MPV 9.7 Immature Gran % (Auto) 0.300 Neut % (Auto) 57.1 Lymph % (Auto) 30.9 [place] % (Auto) 7.8 Eos % (Auto) 2.7 Baso % (Auto) 1.2 H Absolute Neuts (auto) 4.4 Absolute Lymphs (auto) 2.37 Nucleated RBC % 0 Carbon Dioxide 22.9 BUN 19 Creatinine 0.96 Estim Creat Clear Calc 108.46 Est GFR (MDRD) Non-Af 88 BUN/Creatinine Ratio 19.9 Glucose 118 H Calcium 10.9 Urine Color Yellow Urine Clarity Clear Urine pH 6.0 Ur Specific [place] 1.015 Urine Protein 30 H Urine Glucose (UA) Normal Urine Ketones Negative Urine Occult Blood 25 H Urine Nitrite Negative Urine Bilirubin Negative Urine Urobilinogen Normal Ur Leukocyte Esterase 25 H Urine RBC 0-5 SEEN Urine WBC 0-5 SEEN Ur Squamous Epith Cells 0 SEEN Urine Bacteria 0 SEEN Urine Mucus 0 SEEN Radiography Diagnostic Testing: Clinical Impression(s) from Imaging Studies Abdomen/Pelvis CT 08/09/24 07:53 IMPRESSION: 1. Left adrenal adenoma. 2. Small esophageal hiatal hernia. 3. Bilateral inguinal hernias. 4. No obstructive uropathy. 5. Colonic diverticulosis without acute diverticulitis. Reading Location: [facility] Management Discussion w/another healthcare provider: Real Estate Office Supervisor (Dr Rodriges) Discharge Plan Dx/Rx/DC Orders Clinical Impression: Calculus in urethra, Abdominal pain Disposition [facility]
[2024-08-09] MEDS: Ketorolac 30 MG/ML Syringe IV (07:58)
[2024-08-09] MEDS: Ondansetron 4 MG/2 ML Vial IV (08:00)
[2024-08-09] MEDS: Morphine 4 MG/ML Syringe IV ×2 (08:00→11:48)
[2024-08-09] MEDS: 0.9% Normal Saline (1000mL) 1,000 ML 250 ML IV ×2 (08:01→11:50)
[2024-08-09 08:15] LABS: Absolute Lymphocyte Count 2.37 X10^3/uL (0.83-4.51); Absolute Neutrophil Count 4.4 X10^3/uL (2.0-7.7); Basophil# 0.09 X10^3/uL; Basophil% 1.2 % (0-1); Eosinophil# 0.21 X10^3/uL; Eosinophils% 2.7 % (0-5); Hematocrit 48.1 % (40-54); Hemoglobin 16.3 g/dL (13.0-16.5); Lymphocyte # 2.37 X10^3/ul (0.83-4.51); Lymphocyte % 30.9 % (19-41); Mean Corp Hgb Conc 33.9 g/dL (32-36); Mean Corpuscular Hgb 28.7 pg (27.0-32.0); Mean Corpuscular Volume 84.8 fL (80-94); Mean Platelet Vol. 9.7 fl (6.2-12.0); Monocyte% 7.8 % (0-10); NRBC Flagged by Analyzer 0 % (0-5); Neutrophil # 4.38 X10^3/uL (2.7-7.7); Neutrophil % 57.1 % (47-70); Platelet Count 202 K/mm3 (150-450); RBC Distribution Width CV 14.1 % (11.6-14.6); RBC Distribution Width SD 43.2 fl (35.1-43.9); Red Blood Count 5.67 M/mm3 (4.6-6.2); White Blood Count 7.7 K/mm3 (4.4-11.0)
[2024-08-09] MEDS: Lorazepam 2 MG/ML WCH Syringe 1 MG IV (09:02)
[2024-08-09 09:35] LABS: Bacteria 0 SEEN /hpf (None Seen); Mucous, Urine 0 SEEN /hpf (<or=2+); Squamous Epithelial Cells - UA 0 SEEN /hpf (0-5)
[2024-08-09 09:36] LABS: Color, Urine Yellow (Yellow); Glucose, Dipstick Normal (Normal); Ketone-Dipstick Negative (Negative); Leukocyte Esterase-Dipstick 25 /ul (Negative); Nitrite-Dipstick Negative (Negative); Occult Blood-Urine 25 /ul (Negative); Protein-Dipstick 30 mg/dl (Negative); Specific Gravity, Urine 1.015 (1.002-1.030); Urine Bilirubin Dipstick Negative (Negative); Urine Clarity Clear (Clear); Urine Urobilinogen Normal (Normal)
[2024-08-09 09:47] LABS: Red Blood Cells-Urine 0-5 SEEN /hpf (0-5); White Blood Cells 0-5 SEEN /hpf (0-5)
[2024-08-09 10:13] LABS: BUN 19 mg/dL (4-19); BUN/Creat Ratio 19.9 RATIO (10-20); Calcium,Total 10.9 mg/dL (7.6-11.0); Carbon Dioxide 22.9 mmol/L (21.0-32.0); Creatinine, Serum 0.96 mg/dL (0.70-1.20); EST Glomerular Filtration Rate 88 (>60); Estimated Creatinine Clearance 108.46 ml/min (50-250); Glucose 118 mg/dL (70-99)
--- NOTE | 2024-08-09 12:03 | PCM.HP.STD ---
HPI - General General Date of Service: 08/09/24 Chief Complaint: kidney stone HPI Narrative MAE ALVA, is a 63 M who presents with a large kidney stones stuck in the urethra plan to taken the surgery for ureteroscopy laser and basket of fragments. [facility] Medical History Wears glasses Thyroid disease Non-smoker CPAP (continuous positive airway pressure) dependence Sleep apnea Gout Hypothyroidism Home Medications ?Medication ?Instructions ?Recorded ?Last Taken ?Type allopurinol 300 mg tablet 300 mg PO DAILY gout 04/20/21 08/09/24 History levothyroxine 200 mcg tablet 200 mcg PO DAILY thyroid 04/20/21 08/09/24 History multivitamin 1 tab PO DAILY supplement 05/31/21 08/09/24 History amoxicillin 875 mg-potassium 1 tab PO BID antibiotic 08/09/24 08/09/24 History clavulanate 125 mg tablet cholecalciferol (vitamin D3) 50 50 mcg PO DAILY supplement 08/09/24 08/09/24 History mcg (2,000 unit) tablet (Thera-D) levothyroxine 25 mcg tablet 25 mcg PO DAILY thyroid 08/09/24 08/09/24 History red yeast rice 300 mg-coQ10 30 1 cap PO DAILY supplement 08/09/24 08/09/24 History [id number] 120 mg-epa-fish capsule (Red [place]) tamsulosin 0.4 mg capsule 0.4 mg PO QHS prostate 08/09/24 08/08/24 History Allergy/AdvReac Type Severity Reaction Status Date / Time No Known Allergies Allergy Verified 07/18/24 08:09 Surgical History History of cholecystectomy Hx of cholecystectomy Social History Smoking Status: Light Smoker (<10/day) alcohol intake: current alcohol intake frequency: a few times a month ROS Constitutional Constitutional: Denies chills, fever(s) or malaise Eyes Eyes: Denies blurry vision or change in vision ENT HEENT: Reports none Cardiovascular Cardiovascular: Denies chest pain or palpitations Respiratory/Chest Respiratory/Chest: Denies cough or shortness of breath with exertion Gastrointestinal Gastrointestinal: Denies abdominal pain, constipation or diarrhea Musculoskeletal Musculoskeletal: Denies back pain, joint stiffness or joint swelling Integumentary Integumentary: Denies dry skin, jaundice, lesions or rash Neurologic Neurologic: Denies confusion, syncope or weakness Psychiatric Psychiatric: Reports none; Denies anxiety or depression Endocrine Endocrinology: Denies excessive sweating, fatigue or flushing Hematologic/Lymphatic Hematologic/Lymphatic: Denies anemia, easy bleeding or easy bruising Vital Signs Vital Signs Vital Signs: 08/09/24 07:38 08/09/24 07:42 08/09/24 08:37 Temperature 97.7 F L 97.7 F L Temperature Source Oral Oral Pulse Rate 94 94 65 Respiratory Rate 18 18 18 Blood Pressure 160/111 H 160/111 H Blood Pressure Mean 127 127 Blood Pressure Source Blood Pressure Position Blood Pressure Location Pulse Ox 97 97 99 Oxygen Delivery Method Room Air Room Air 08/09/24 09:00 08/09/24 09:10 08/09/24 10:00 Temperature Temperature Source Pulse Rate 69 72 Respiratory Rate 16 38 H 16 Blood Pressure 127/66 H Blood Pressure Mean 86 Blood Pressure Source Blood Pressure Position Blood Pressure Location Pulse Ox 99 98 97 Oxygen Delivery Method Room Air Room Air Room Air 08/09/24 11:00 08/09/24 11:17 Temperature Temperature Source Pulse Rate 65 61 Respiratory Rate 18 18 Blood Pressure 131/74 H 131/74 H Blood Pressure Mean 93 93 Blood Pressure Source Monitor Blood Pressure Position Semi-Fowlers Blood Pressure Location Right Arm Pulse Ox 97 98 Oxygen Delivery Method Room Air Room Air Weight Weight: 127.006 kg Body Mass Index (BMI) 38.0 Physical Exam Const alert and oriented x3 General Appearance: cooperative HEENT normocephalic and head/scalp atraumatic Eyes PERRL and EOMs intact bilaterally Neck supple, no JVD and no carotid bruits Resp normal respiratory effort, normal air movement and clear to auscultation bilaterally Cardio regular rate and no murmurs GI normal to inspection, nondistended, normoactive bowel sounds and soft to palpation Extremity normal capillary refill General Extremity: no tenderness to palpation of joints or extremities; Negative for edema Skin no rashes or lesions noted and no wounds General Skin Exam: no breakdown Neuro CN's II-XII intact bilaterally Psych affect normal Appearance: appropriate Results Lab / Micro Data 08/09/24 07:48 08/09/24 07:48 Labs: Laboratory Results - last 24 hr 08/09/24 07:48: WBC 7.7, RBC 5.67, Hgb 16.3, Hct 48.1, MCV 84.8, MCH 28.7, MCHC 33.9, RDW Std Deviation 43.2, RDW Coeff of Stewart 14.1, Plt Count 202, MPV 9.7, Immature Gran % (Auto) 0.300, Neut % (Auto) 57.1, Lymph % (Auto) 30.9, [place] % (Auto) 7.8, Eos % (Auto) 2.7, Baso % (Auto) 1.2 H, Absolute Neuts (auto) 4.4, Absolute Lymphs (auto) 2.37, Nucleated RBC % 0, Carbon Dioxide 22.9, BUN 19, Creatinine 0.96, Estim Creat Clear Calc 108.46, Est GFR (MDRD) Non-Af 88, BUN/Creatinine Ratio 19.9, Glucose 118 H, Calcium 10.9 08/09/24 09:31: Urine Color Yellow, Urine Clarity Clear, Urine pH 6.0, Ur Specific [place] 1.015, Urine Protein 30 H, Urine Glucose (UA) Normal, Urine Ketones Negative, Urine Occult Blood 25 H, Urine Nitrite Negative, Urine Bilirubin Negative, Urine Urobilinogen Normal, Ur Leukocyte Esterase 25 H, Urine RBC 0-5 SEEN, Urine WBC 0-5 SEEN, Ur Squamous Epith Cells 0 SEEN, Urine Bacteria 0 SEEN, Urine Mucus 0 SEEN Imaging Radiology Impression Abdomen/Pelvis CT 08/09/24 07:53 IMPRESSION: 1. Left adrenal adenoma. 2. Small esophageal hiatal hernia. 3. Bilateral inguinal hernias. 4. No obstructive uropathy. 5. Colonic diverticulosis without acute diverticulitis. Reading [facility] Assessment & Plan Assessment/Plan (1) Abdominal pain: PLAN: plan surgery today to laser and remove stones. (2) Calculus in urethra:
[2024-08-09 12:17] LABS: Anion Gap 12 (5-15); Chloride 99 mmol/L (98-108); Potassium 4.4 mmol/L (3.3-5.1); Sodium Level 134 mmol/L (133-145)
--- NOTE | 2024-08-09 12:30 | PRE.ANES_ITS ---
ASA Classification* ASA Classification ASA Classification: 3 Assessment & Plan Anesthesia* Anesthesia Assessment Anesthesia Assessment: Discussed sedation and/or anesthesia options, risks, benefits, and alternatives with patient/parents/legal guardian/POA. Questions invited. The patient/parents/legal guardian/POA seems to understand and agrees to proceed with anesthesia plan. Reviewed the physical assessment, medical history, allergy history and patient home medications list prior to surgery/procedure/anesthetic and documented any changes. Performed airway and anesthesia risk assessments. Anesthesia Type Anesthesia Type: MAC (with backup GETA LMA or ETT) History Source History Obtained from:: Patient and Chart Anesthesia Focused Assessment* Temperature: 97.7 F Pulse Rate: 61 Blood Pressure: 131/74 Respiratory Rate: 18 Pulse Ox: 98 Oxygen Delivery Method: Room Air Airway Assessment Mouth opens: >3 cm Mallampati Score: III Teeth Condition: Intact Neck Range of motion (ROM): Full ROM Focused Labs Anesthesia Preop lab: CBC WBC 7.7 K/mm3 (4.4-11.0) 08/09/24 07:48 08/09/24 RBC 5.67 M/mm3 (4.6-6.2) 08/09/24 07:48 08/09/24 Hgb 16.3 g/dL (13.0-16.5) 08/09/24 07:48 08/09/24 Hct 48.1 % (40-54) 08/09/24 07:48 08/09/24 Plt Count 202 K/mm3 (150-450) 08/09/24 07:48 08/09/24 CHEMISTRY Potassium 4.4 mmol/L (3.3-5.1) 08/09/24 07:48 08/09/24 Sodium 134 mmol/L (133-145) 08/09/24 07:48 08/09/24 BUN 19 mg/dL (4-19) 08/09/24 07:48 08/09/24 Creatinine 0.96 mg/dL (0.70-1.20) 08/09/24 07:48 08/09/24 Glucose 118 mg/dL (70-99) H 08/09/24 07:48 08/09/24 TSH 3.090 uIU/mL (0.358-3.740) 04/01/24 07:42 03/19 09/09 COAG Pre-Assessment Diagnosis/Proposed Procedure Planned Operative Procedure(s): Cystoscopy, ureteroscopy, retrograde, laser basket extraction of stones. 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 When Was Last Pacemaker Check QUESTION #4 FULL TEXT: You/Your Family Experience fever (hyperthermia) with Anesthesia Any additional information?: No Last Oral Intake Last Oral intake: Last Oral Intake NPO since 06:30 08/09/24 11:17 Meds taken in AM with sips of Yes 08/09/24 11:17 water? Meds patient instructed to Antibiotic, flomax 08/09/24 11:17 take am of surgery Any additional information?: No PONV PONV - processes chemical design engineer: PONV - processes chemical design engineer Female HX of Motion Sickness HX of N/V After Surgery Non-Smoker Duration of Surgery greater than 60 minutes Number of Risk Factors PONV Score Any additional information?: No Height & Weight Height & Weight: Anesthesia: Height & Weight Height 6 ft 08/09/24 11:17 Weight: 127.006 kg 08/09/24 11:17 Body Mass Index (BMI) 38.0 08/09/24 11:17 Respiratory Assessment Respiratory Assessment - processes chemical design engineer: Respiratory Tract Infection Hx - processes chemical design engineer Hx Respiratory Tract Infection No 08/09/24 11:17 Any additional information?: No STOP Sleep Apnea STOP Sleep Apnea - processes chemical design engineer: STOP Sleep Apnea - processes chemical design engineer Hx Hypertension No 08/09/24 11:17 Hx Sleep Apnea Yes 08/09/24 11:17 CPAP Yes 08/09/24 11:17 BIPAP No 08/09/24 11:17 Do you snore loudly (louder than talking or can be heard Do you often feel tired/ fatigued/ sleepy during daytime? Has anyone observed you stop breathing during sleep? STOP Results Positive 08/09/24 11:17 QUESTION #5 FULL TEXT : Do you snore loudly (louder than talking or can be heard through closed doors)? Any additional information?: No Tobacco Use History Tobacco Use History - processes chemical design engineer: Tobacco Use History - processes chemical design engineer Tobacco Use Smoking Status Light Smoker (<10/day) 08/09/24 07:45 Hx Tobacco Use Yes 05/31/21 10:15 Years Smoking Packs Smoked per Day Smoking Cessation Date was within the last 15 years Hx Smoking Cessation Date Hx Smoking Cessation Counseling Any additional information?: No Hematologic Medial History Hematologic Hx - processes chemical design engineer: Hematologic Medical Hx - inspector casing Hx of Blood Transfusion Hx of Transfusion in last 3 Months Date of Last Transfusion (if within last 3 months) Ever experience any problems with transfusion(s)? Specify any problems Hx of Preganancy in last 3 Months Nurse Filling Out Transfusion & Questions: Date: Time: Patient unable to answer at this time (ie. confused, unrespo Any additional information?: No /Reproduction History /Reproductive History - processes chemical design engineer: /Reproductive Hx- processes chemical design engineer Hx Now Gestational Age (in weeks): EDC: Hx Hx Para Hx Section SAB Any additional information?: No Active Medications Active Medications: Current Medications Generic Name Dose Route Start Last Admin Trade Name Freq PRN Reason Stop Dose Admin Sodium Chloride 1,000 mls @ 250 mls/hr 08/09/24 07:55 08/09/24 11:50 IV 250 mls/hr .Q4H MANFRED Administration PFSH Medical History Wears glasses Thyroid disease Non-smoker CPAP (continuous positive airway pressure) dependence Sleep apnea Gout Hypothyroidism Home Medications ?Medication ?Instructions ?Recorded ?Last Taken ?Type allopurinol 300 mg tablet 300 mg PO DAILY gout 1 08/09/24 History levothyroxine 200 mcg tablet 200 mcg PO DAILY thyroid 04/20/21 08/09/24 History multivitamin 1 tab PO DAILY supplement 08/09/24 History amoxicillin 875 mg-potassium 1 tab PO BID antibiotic 0 08/09/24 08/09/24 History clavulanate 125 mg tablet cholecalciferol (vitamin D3) 50 50 mcg PO DAILY supple ment 08/09/24 08/09/24 History mcg (2,000 unit) tablet (Thera-D) levothyroxine 25 mcg tablet 25 mcg PO DAILY thyroid 08/09/24 History red yeast rice 300 mg-coQ10 30 1 cap PO DAILY suppleme nt 08/09/24 08/09/24 History ao--hqy 120 mg-epa-fish capsule ([place]) tamsulosin 0.4 mg capsule 0.4 mg PO QHS prostate 08/0908/08/24 History Allergy/AdvReac Type Severity Reaction Status Date / Time No Known Allergies Allergy Verified 07/18/24 08:09 Surgical History History of cholecystectomy Hx of cholecystectomy Social History Smoking Status: Light Smoker (<10/day) alcohol intake: current alcohol intake frequency: a few times a month Review of Systems (Anesthesia) ROS Narrative System reviewed and no additional complaints, except as documented.
[2024-08-09] MEDS: Cefazolin 2 GM in Syringe IV (12:45)
--- NOTE | 2024-08-09 13:05 | OP.PCM_ITS ---
Operative Report (Standard) Operative Information Date of Procedure: 08/09/24 Pre-Operative Diagnosis: ureteral calculi Post-Operative Diagnosis: same Surgery/Procedure Performed: cystscopy, ureteroscopy, laser stone baskets fragments, no stent jewelry coater: No Type of Anesthesia: General RN Documented Start/Stop Times: Operation Date: 08/09/24 13:30 Case Time Into Pre-Op 08/09/24 12:15 Out of Pre-Op 08/09/24 12:40 Anesthesia Start 08/09/24 12:43 Into Room 08/09/24 12:43 Procedure Start 08/09/24 12:55 Procedure Start Time: 12:55 Procedure Stop Time: 13:06 Select all DRAINS/GRAFTS/IMPLANTS that apply: None Estimated Blood Loss: 2 Specimen collected: Yes Description of specimen(s) removed: stone Description of surgery: This is a patient who presents to the hospital for treatment for an obstructing ureter calculi. I discussed with the patient how the surgery would be performed and we reviewed the risks and benefits of the surgery. The risk and benefits include the risk of failure to remove the stone completely and that the patient may need multiple procedures. We discussed the risk of an infection, the risk of bleeding. We discussed the very rare risk of serious complicated injury to the ureter. The patient understands that if the stone is not able to be removed safely that we may abort the procedure and place a stent. After full discussion and all questions address with the patient the consent form was signed the side was marked appropriately and the patient was taken back to the operating room for the procedure. The patient was taken back to the operating room. After induction of anesthesia by the anesthesiology team the patient was placed in dorsolithotomy position. The genitals were prepped and draped in usual sterile fashion. I went into the bladder with a 21 [place] rigid cystourethroscope through the urethra. Upon entering the bladder I inspected the trigone the left and right ureteral orifice and the bladder itself. I then cannulated the left ureteral orifice and advanced a 0.038 Glidewire up into the kidney. Then over the Glidewire I advanced a 5 Fr Ureteral catheter and performed a retrograde pyelogram with about 10cc of contrast, to delineate the anatomy and identify the stone location. Then a ureteral balloon dilator was advanced over the wire and the distal ureter was balloon dilated with a 12 Fr x 5cm balloon dilator. After 3 minutes of dilating the ureter the balloon was backloaded off the 0.038 glidewire then the safety wire was left in place. then utereroscope and I pulled out the working guidewire and then through the 7.5 fr simirigid ureteroscope I engage the stone in the distal ureter with laser lithotripsy using a 270miron laser fiber with energy setting of 6 Hertz and 0.6 J until the stone was lasered into tiny little pieces that should pass on their own. A retrograde pyelogram was performed with 10cc of contrast and no extravasation of contrast or perforation was identified in the ureter there was some mild irritation of the ureter where the stone was located. stone lasered comletely basketed out all fragments with tipless basket, no stent placed. I then drained the patient's bladder and the cystoscope was removed and the patient was taken back to the recovery room in good position. The patient was given discharge instructions to call the office for instructions on when to come to the office to have the stent removed. Surgical Findings: stone lasered and removed Complications Complications: No
--- NOTE | 2024-08-09 13:20 | PCM.POST.ANE ---
Anesthesia: Postop Eval I Current Vital Signs Temperature: 97 F Pulse Rate: 71 Blood Pressure: 110/68 Respiratory Rate: 16 Pulse Ox: 95 Oxygen Delivery Method: Room Air Assessment Airway patent: Yes Spontaneous unlabored respirations: Yes Mental status: Awake nausea: No Vomiting: No Anesthesia Complication: No Fluid Hydration Crystalloid volume administer (ml): 900 Total IV fluid infused: 900 Progress Note Anesthesia document: Postop Eval 1 completed: Yes
--- NOTE | 2024-08-09 14:07 | POSTOPAN2_ITS ---
Anesthesia Postop Eval I Sum Postop Eval Completion status Anesthesia document: Postop Eval 1 completed: Yes Anesthesia Postop Eval I Summary Anesthesia Postop Eval I Summary: Anesthesia Postop Eval I: Assessment Summary Airway patent Yes 08/09/24 13:21 RESIDENTIAL CONSTRUCTION [email or web address] Spontaneous unlabored Yes 08/09/24 13:21 RESIDENTIAL CONSTRUCTION INSTRUCTOR.[email or web address] respirations Mental status Awake 08/09/24 13:21 RESIDENTIAL CONSTRUCTION INSTRUCTOR.[email or web address] nausea No 08/09/24 13:21 RESIDENTIAL CONSTRUCTION INSTRUCTOR.[email or web address] Vomiting No 08/09/24 13:21 RESIDENTIAL CONSTRUCTION INSTRUCTOR.[email or web address] Anesthesia Postop Eval I: Fluid Summary Crystalloid volume administer 900 08/09/24 13:21 RESIDENTIAL CONSTRUCTION INSTRUCTOR.[email or web address] (ml) Colloids volume administered ( ml) Blood Product volume administered (ml) Total IV fluid infused 900 08/09/24 13:21 RESIDENTIAL CONSTRUCTION INSTRUCTOR.[email or web address] Anesthesia Postop Eval I: Summary Notes Anesthesia Complication No 08/09/24 13:21 RESIDENTIAL CONSTRUCTION INSTRUCTOR.[email or web address] Anesthesia Complication Comment: Post-operative progress note Anesthesia: Postop Eval II Evaluation Mental status: Awake Pain Level: 3 nausea: No Vomiting: No
--- NOTE | 2024-08-09 14:07 | PCM.POSTANE2 ---
Anesthesia Postop Eval I Sum Postop Eval Completion status Anesthesia document: Postop Eval 1 completed: Yes Anesthesia Postop Eval I Summary Anesthesia Postop Eval I Summary: Anesthesia Postop Eval I: Assessment Summary Airway patent Yes 08/09/24 13:21 [email or web address] Spontaneous unlabored Yes 08/09/24 13:21 VALVE [email or web address] respirations Mental status Awake 08/09/24 13:21 [email or web address] [email or web address] nausea No 08/09/24 13:21 VALVE [email or web address] Vomiting No 08/09/24 13:21 [email or web address] Anesthesia Postop Eval I: Fluid Summary Crystalloid volume administer 900 08/09/24 13:21 VALVE [email or web address] (ml) Colloids volume administered ( ml) Blood Product volume administered (ml) Total IV fluid infused 900 08/09/24 13:21 VALVE [email or web address] Anesthesia Postop Eval I: Summary Notes Anesthesia Complication No 08/09/24 13:21 VALVE [email or web address] Anesthesia Complication Comment: Post-operative progress note Anesthesia: Postop Eval II Evaluation Mental status: Awake Pain Level: 3 nausea: No Vomiting: No
== END 2024-08-09 15:21 | disposition home or self-care (01) ==
LOC: ED 10:39 → SDC 11:11 → ACINP 11:12
PROVIDERS: Emergency Provider Emergency Medicine; PCP Family Medicine; Visit Provider Urology
PROC: (CPT 52356; principal; 2024-08-09 13:20)
DX: N21.1 Calculus in urethra (principal); E03.9 Hypothyroidism, unspecified; Z99.89 Dependence on other enabling machines and devices; G47.30 Sleep apnea, unspecified; F17.210 Nicotine dependence, cigarettes, uncomplicated; Z90.49 Acquired absence of other specified parts of digestive tract
CPT/HCPCS: 52353; 00918; 74176; 80048; 81001; 82360; 85025; 88300; 99285; A4216; C1769; J2405

== ENCOUNTER → 2025-04-29 | Outpatient (CLI) | payer OTHER, SELFPAY ==
--- NOTE | 2025-04-29 08:45 | EKG12_ITS ---
Test Reason : PREOP Blood Pressure : */* mmHG Vent. Rate : 68 BPM Atrial Rate : 68 BPM P-R Int : 172 ms QRS Dur : 154 ms QT Int : 438 ms P-R-T Axes : 49 -63 12 degrees QTcB Int : 465 ms Normal sinus rhythm with sinus arrhythmia Right bundle branch block Left anterior fascicular block Bifascicular block Abnormal ECG Confirmed by CRISTY HYMAN, RENUKA ([id number]), subeditor MARGARETTE HATCH ([id number]) on 05/02/2025 6:13:02 AM Referred By: Brian Solano Confirmed By: RENUKA MUNIZ MD
[2025-04-29 11:17] LABS: Anion Gap 12 (5-15); BUN 15 mg/dL (4-19); BUN/Creat Ratio 17.7 RATIO (10-20); Calcium,Total 10.5 mg/dL (7.6-11.0); Carbon Dioxide 22.6 mmol/L (21.0-32.0); Chloride 102 mmol/L (98-108); Cholesterol 233 mg/dL (<=200); Glucose 109 mg/dL (70-99); Low Density Lipoprotein Calc. 151 mg/dL; Potassium 4.3 mmol/L (3.3-5.1); Triglycerides 199 mg/dL; Uric Acid 4.2 mg/dL (3.5-7.2); Very Low Density Lipoprotein 40 mg/dL (5-40); cholesterol:hdl ratio screen 5.10
[2025-04-29 11:22] LABS: PSA,Total - Annual Screen 1.37 ng/mL (0.02-4.00); Vitamin D,25 Hydroxy 27.2 ng/mL (30-100)
== END | disposition home or self-care (01) ==
PROVIDERS: PCP Family Medicine; Referring Provider Otolaryngology; Visit Provider Otolaryngology
DX: Z01.810 Encounter for preprocedural cardiovascular examination (principal); Z01.818 Encounter for other preprocedural examination; Z13.220 Encounter for screening for lipoid disorders; Z12.5 Encounter for screening for malignant neoplasm of prostate; Z13.1 Encounter for screening for diabetes mellitus; E03.9 Hypothyroidism, unspecified; E55.9 Vitamin D deficiency, unspecified
CPT/HCPCS: 36415; 80048; 80061; 82306; 84153; 84439; 84443; 84550; 93005; G0103